=== PATIENT | female | born 1930 | race Caucasian/White ===

== ENCOUNTER 2019-05-30 13:35 | Emergency (ER) | payer MEDICARE ==
[~2019-05-30] VITALS: Ht 157.5 cm; Wt 54.5 kg
[~2019-05-30 13:35] MED LIST: AMLO5TAB6 PO; ASPI81TA26 PO; FIRS50SO PO; FLAG250T PO; FLAG500T PO; GABA-1171 PO; LABE10TAB PO; LABE20TAB PO; LEVO75TA4 PO; MELO7.5T7 PO; OXYB10TA2 PO; PLAV1TAB2 PO; ZETI10TA16 PO
[2019-05-30] MEDS ORDERED: NS 500 ML IV ONE (13:45)
[2019-05-30] MEDS ORDERED: LOSA100T50 (13:58)
--- NOTE | 2019-05-30 14:25 | REP ---
Clinical: Hypotension . Comparison: 08/14/2009 . Findings: The mediastinum and cardiac silhouette are stable and within normal limits for portable technique. The lung keller are clear without acute consolidation, effusion, or pneumothorax. Skeletal structures are intact. Impression: No acute cardiopulmonary process appreciated. Electronically Signed by Ed Gardner MD 05/30/2019 02:16 P
[2019-05-30 14:29] LABS: BASO % 0.3 % (0.0-1.0); EOS # 0.2 10^3/uL (0.0-0.5); EOS % 2.1 % (0.0-3.0); HEMATOCRIT 39.9 % (36.0-47.0); LYMPH # 1.8 10^3/uL (1.5-5.0); LYMPH % 19.3 % (24.0-44.0); MEAN CORPUSCULAR HGB CONC 30.1 g/dl (32.0-36.5); MEAN CORPUSCULAR VOLUME 89.9 fl (80.0-96.0); MONO # 0.7 10^3/uL (0.0-0.8); MONO % 7.3 % (0.0-5.0); NEUTROPHILS # 6.7 10^3/uL (1.5-8.5); NEUTROPHILS % 70.6 % (36.0-66.0); PLATELET COUNT, AUTOMATED 165 10^3/uL (150-450); RED BLOOD COUNT 4.44 10^6/uL (4.00-5.40); WHITE BLOOD COUNT 9.5 10^3/uL (4.0-10.0)
[2019-05-30 15:08] LABS: ALBUMIN 3.6 GM/DL (3.2-5.2); ALT/SGPT 19 U/L (12-78); AMYLASE 58 U/L (25-115); BILIRUBIN,DIRECT 0.1 MG/DL (0.0-0.2); BILIRUBIN,TOTAL 0.4 MG/DL (0.2-1.0); BLOOD UREA NITROGEN 28 MG/DL (7-18); CALCIUM LEVEL 9.4 MG/DL (8.8-10.2); CARBON DIOXIDE LEVEL 25 MEQ/L (21-32); CHLORIDE LEVEL 107 MEQ/L (98-107); CK-MB VALUE MASS 2.4 NG/ML (<3.6); CPK CREATINE PHOSPHOKINASE 93 U/L (26-192); CREATININE FOR GFR 1.39 MG/DL (0.55-1.30); GLOMERULAR FILTRATION RATE 38.1 (>32); GLUCOSE, FASTING 90 MG/DL (70-100); LIPASE 228 U/L (73-393); MB/CK RELATIVE INDEX 2.58 (< OR =4); SODIUM LEVEL 140 MEQ/L (136-145); TOTAL PROTEIN 6.3 GM/DL (6.4-8.2); TROPONIN I < 0.02 NG/ML (< 0.10)
[2019-05-30 18:08] VITALS: BP 122/59
[2019-05-30] MEDS ORDERED: EEG (18:13)
--- NOTE | 2019-05-30 20:19 | ECGEPIP ---
[facility] - ED Test Date: 2019-05-30 Pat Name: VERONICA FELDMAN Department: Room: - Gender: Female Receiving Team Member: Lori : [id number] Requested By: JING Maddox Order Number: [id number] Reading MD: Damon Krishnamurthy Measurements Intervals [place] Rate: 62 P: -15 FL: 135 QRS: -30 QRSD: 158 T: 91 QT: 492 QTc: 500 Interpretive Statements SINUS RHYTHM LEFT BUNDLE BRANCH BLOCK, NEW COMPARED TO 10/12/15 Electronically Signed on 05-30-2019 20:19:25 EST by Damon Krishnamurthy
== END 2019-05-30 18:54 | disposition home or self-care (01) ==
LOC: M ED 13:35 → EDBD 13:35 → M ED 18:54
DX: R40.4 Transient alteration of awareness (principal); I95.1 Orthostatic hypotension; I44.7 Left bundle-branch block, unspecified; I10 Essential (primary) hypertension; Z86.19 Personal history of other infectious and parasitic diseases; Z95.5 Presence of coronary angioplasty implant and graft; Z79.82 Long term (current) use of aspirin; Z79.02 Long term (current) use of antithrombotics/antiplatelets; Z79.899 Other long term (current) drug therapy; Z88.5 Allergy status to narcotic agent